=== PATIENT | female | born 1955 | race Caucasian/White ===

== ENCOUNTER → 2017-02-12 | Outpatient (CLI) | payer OTHER | LOC: BMCIMAGING 12:45 | PROVIDERS: ATTEND Internal Medicine | DX: Z12.31 Encounter for screening mammogram for malignant neoplasm of breast (principal); R92.8 Other abnormal and inconclusive findings on diagnostic imaging of breast | CPT/HCPCS: G0202 ==

== ENCOUNTER → 2017-02-22 | Outpatient (CLI) | payer OTHER | LOC: BMCIMAGING 10:06 | PROVIDERS: ATTEND Internal Medicine | DX: R92.8 Other abnormal and inconclusive findings on diagnostic imaging of breast (principal) | CPT/HCPCS: G0206 ==

== ENCOUNTER → 2018-03-10 | Outpatient (CLI) | payer OTHER | LOC: FIMAGING 09:24 | PROVIDERS: ATTEND Internal Medicine | DX: Z12.31 Encounter for screening mammogram for malignant neoplasm of breast (principal) ==

== ENCOUNTER 2018-06-23 05:25 | Inpatient (IN) | payer OTHER ==
[2018-06-23] MEDS ORDERED: ceFAZolin 2 GM/DEXTROSE 100 ML IV ONE (05:49)
[2018-06-23] MEDS ORDERED: ACETAMINOPHEN 500 MG TAB PO ONE (05:49)
[2018-06-23] MEDS ORDERED: GABAPENTIN 300 MG CAP PO ONE (05:49)
[2018-06-23] MEDS ORDERED: LR 1,000 ML IV ONE (05:53)
--- NOTE | 2018-06-23 06:31 | PDHPUP ---
History & Physical Update H&P update statement: This history and physical update is based on an assessment of the patient which was completed after admission or registration (within 24 hours), but prior to the surgery/procedure. H&P update: H&P reviewed & patient examined, no change in patient's condition since H&P completed
[2018-06-23] MEDS ORDERED: SUMAtriptan 50 MG TAB PO PRN (06:38)
[2018-06-23] MEDS ORDERED: CARBOXYMETHYLCELLULOSE 1% 0.4 ML DROPERETTE EACHEYE PRN (06:38)
[2018-06-23] MEDS ORDERED: SODIUM CL NASAL 45 ML BTL NS PRN (06:38)
[2018-06-23] MEDS ORDERED: BUPIVACAINE/EPI 0.25% 30 ML SDV ONE (06:41)
[2018-06-23] MEDS ORDERED: BACITRACIN 50,000 UNITS/10 ML SYR IRR ONE (06:42)
[2018-06-23] MEDS ORDERED: THROMBIN (BOVINE) 5,000 UNIT VIAL TP ONE (06:42)
[2018-06-23] MEDS ORDERED: CHLORHEXIDINE GLUC HIBICLENS 118 ML BTL TP ONE (06:42)
[2018-06-23] MEDS ORDERED: MIDAZOLAM 2 MG/2 ML VIAL ONE (07:05)
[2018-06-23] MEDS ORDERED: fentaNYL 100 MCG/2 ML INJ ONE ×2 (07:05→11:10)
[2018-06-23] MEDS ORDERED: PROPOFOL 200 MG/20 ML VIAL ONE (07:06)
[2018-06-23] MEDS ORDERED: PROPOFOL/EMULSION 500 MG/50 ML BOTTLE IV ONE ×2 (07:06→09:30)
[2018-06-23] MEDS ORDERED: POLYETHYLENE GLYCOL 3350 17 GM PKT PO PRN (07:24)
[2018-06-23] MEDS ORDERED: morphINE PCA 30 MG/30 ML PCA IV PRN (07:24)
[2018-06-23] MEDS ORDERED: HYDROCODONE/APAP 5/325 TAB PO PRN (07:24)
[2018-06-23] MEDS ORDERED: LACTULOSE 20 GM/30 ML UDCUP PO PRN (07:24)
[2018-06-23] MEDS ORDERED: BISACODYL 10 MG SUPP PR PRN (07:24)
[2018-06-23] MEDS ORDERED: HYDROmorphONE/DILAUDID 1 MG/ML INJ IVP PRN (07:24)
[2018-06-23] MEDS ORDERED: oxyCODONE IR 5 MG TAB PO PRN (07:24)
[2018-06-23] MEDS ORDERED: METHOCARBAMOL 750 MG TAB PO PRN (07:24)
[2018-06-23] MEDS ORDERED: ONDANSETRON 4 MG/2 ML VIAL IVP PRN ×2 (07:24→10:51)
[2018-06-23] MEDS ORDERED: diphenhydrAMINE 25 MG CAP PO PRN (07:24)
[2018-06-23] MEDS ORDERED: MAGNESIUM HYDROXIDE 30 ML UDCUP PO PRN (07:24)
[2018-06-23] MEDS ORDERED: NALOXONE HCL 0.4 MG/ML INJ IVP PRN ×2 (07:24→10:51)
[2018-06-23] MEDS ORDERED: ONDANSETRON DISINTEGRATING 4 MG TAB PO PRN (07:24)
[2018-06-23] MEDS ORDERED: NS 1,000 ML IV SCH (07:30)
[2018-06-23] MEDS ORDERED: ROCURONIUM 50 MG/5 ML VIAL ONE (07:31)
[2018-06-23] MEDS ORDERED: ONDANSETRON 4 MG/2 ML VIAL ONE (07:31)
[2018-06-23] MEDS ORDERED: METOCLOPRAMIDE 10 MG/2 ML VIAL ONE (07:31)
--- NOTE | 2018-06-23 07:37 | PDANEPAE ---
ANE Past Medical History - Cardiovascular History Hx Hypertension: Yes Hx Arrhythmias: No Hx Chest Pain: No Hx Coronary Artery / Peripheral Vascular Disease: No Hx CHF / Valvular Disease: No Hx Palpitations: No - Pulmonary History Hx COPD: No Hx Asthma/Reactive Airway Disease: No Hx Recent Upper Respiratory Infection: No Hx Oxygen in Use at Home: No Hx Sleep Apnea: No Sleep Apnea Screening Result - Last Documented: Negative - Neurologic History Hx Cerebrovascular Accident: No Hx Seizures: No Hx Dementia: No Neurologic History Comment: migraine. 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 narrowed sinuses - Chronic Pain History Chronic Pain: Yes (low back) - Surgical History Prior Surgeries: rhinoplasty x 3. tonsillectomy. laparotomy and spleenectomy. full hysterectomy. rotator cuff repair. lumbar fusion, L3-4-5, 2013 ANE Review of Systems Review of Systems: - Exercise capacity METS (RN): 5 METS ANE Patient History - Allergies Allergies/Adverse Reactions: Sulfa (Sulfonamide Antibiotics) Allergy (Verified 06/10/18 14:37) Vomiting - Home Medications Home Medications: Carboxymethylcellulose 1% [Refresh Celluvisc (*)] 1 drop EACHEYE DAILY PRN 06/10 [Last Taken 06/09/18] Estradiol [Estrace Vaginal (*)] 1 vasyl VG Q3D@21 06/10/18 [Last Taken 05/24/18] Estradiol [Estradiol 1 MG (*)] 0.5 mg PO HS 06/10/18 [Last Taken Unknown] Furosemide [Lasix 20 MG (*)] 10 mg PO HS 06/10/18 [Last Taken 06/20/18] Herbals/Supplements -Info Only 1 ea PO DAILY 06/10/18 [Last Taken 06/15/18] Nabumetone [Relafen 500 mg (*)] 500 mg PO BID PRN 06/10/18 [Last Taken 06/15/18] Promethazine HCl [Phenergan 12.5mg tab] 12.5 mg PO DAILY PRN 06/10/18 [Last Taken 06/09/18] SUMAtriptan [Imitrex 50 MG (*)] 100 mg PO Q2H PRN 06/10/18 [Last Taken 06/09/18] Sodium Cl Nasal [Massanutten Lucinda (*)] 1 spray NS DAILY PRN 06/10/18 [Last Taken 11/03] Topiramate [Topamax 100MG (*)] 100 mg PO HS 06/10/18 [Last Taken 06/22/18] guaiFENesin [Guaifenesin] 200 mg PO Q2D@21 06/10/18 [Last Taken 06/18/18] - NPO status NPO Since - Liquids (Date): 06/22/18 NPO Since - Liquids (Time): 03:30 NPO Since - Solids (Date): 06/22/18 NPO Since - Solids (Time): 18:00 - Smoking Hx Smoking Status: Never smoked - Family Anes Hx Family Hx Anesthesia Complications: none ANE Labs/Vital Signs - Vital Signs Blood Pressure: 147/89 Heart Rate: 64 Respiratory Rate: 16 O2 Sat (%): 95 Height: 170.18 cm Weight: 73.482 kg ANE Physical Exam - Airway Mallampati Score: Class 2 - ASA Status ASA Status: II ANE Anesthesia Plan Anesthesia Plan: general endotracheal anesthesia Urgent/Emergent Case: Nova marie completed preop but documented later for safe timely pt care
[2018-06-23] MEDS ORDERED: PHENYLEPHRINE HCL 100 MCG/ML SYR ONE (08:24)
--- NOTE | 2018-06-23 10:23 | PDMN ---
Medical Necessity Medical necessity: Pt meets inpt criteria per MD order and [facility] [place] S-820, Lumbar Fusion, Medicare IP only list. 62 y/o admitted for L2/3 TLIF and post-op care.
[2018-06-23] MEDS ORDERED: PROMETHAZINE HCL 25 MG/ML INJ IVP PRN (10:51)
[2018-06-23] MEDS ORDERED: HYDROmorphONE/DILAUDID 2 MG/ML INJ IVP PRN (10:51)
[2018-06-23] MEDS ORDERED: fentaNYL 100 MCG/2 ML INJ IVP PRN (10:51)
[2018-06-23] MEDS ORDERED: LR 500 ML IV PRN (10:51)
[2018-06-23] MEDS ORDERED: DEXAMETHASONE 4 MG/ML VIAL IVP PRN (10:51)
--- NOTE | 2018-06-23 10:53 | POSTANESTH ---
Post Anesthetic Evaluation Cardiovascular Status: Normal, Stable Respiratory Status: Normal, Stable Level of Consciousness/Mental Status: Can Participate in Eval Pain Control: Adequate, Prn Tx Ordered Nausea/Vomiting Control: Adequate, Prn Tx Ordered Complications Possibly Related to Anesthesia: None Noted
--- NOTE | 2018-06-23 10:58 | POSTOPPROG ---
Post Op Note Date of Operation: 06/23/18 Surgeon: El Zhang Diving Board Assembler: TERRY Munoz Anesthesiologist: MD Berna Anesthesia: GET(General Endotracheal), Local (Specify) Pre-op Diagnosis: lumbar stenosis L2/3 Post-op Diagnosis: lumbar stenosis L2/3 Indication: lumbar radiculopathy Procedure: L2/3 TLIF with tie in fusion to prior PSF hardware Findings: see op report Inf/Abcess present in the surg proc area at time of surgery?: No Depth: Deep Incisional (Fascial) EBL: 100-500 Total fluids administered: see anesthesia record Complications: none Drains: Brad Mcneill
--- NOTE | 2018-06-23 11:02 | SOAPPROG ---
SOAP Progress Note Assessment/Plan: Post Op Visit: S: Awake and alert. Pt with expected lower back pain O: AFVSS/PERRLA/EOMI no droop CN 2-12 grossly intact +lt touch 5/5 BUE/BLE = CDI MIKO in place A/P: 62 yo female that is s/p L2/3 TLIF with tie in fusion to PSF -orders in place -brace when out of bed -no bending or twisting -post op xrays pending -call with any questions or concerns Objective: Vital Signs Temp Pulse Resp BP Pulse Ox 36.6 C 64 16 147/89 H 95 06/23/18 06:15 06/23/18 07:37 06/23/18 07:37 06/23/18 07:37 06/23/18 07:37 ICD10 Worksheet Patient Problems: Problems Problem Status Onset Arthrodesis status Acute Lumbago Acute Lumbar radicular pain Acute Lumbar stenosis Acute - ICD10 Problem Qualifiers (1) Lumbar radicular pain (2) Lumbago (3) Lumbar stenosis (4) Arthrodesis status
[2018-06-23] MEDS ORDERED: HYDROmorphONE/DILAUDID 2 MG/ML INJ ONE (11:11)
[2018-06-23] MEDS ORDERED: PROMETHAZINE HCL 25 MG TAB PO PRN (11:45)
[2018-06-23] MEDS: SENNOSIDES/DOCUSATE SODIUM TAB PO SCH ×2 (12:17→21:58)
[2018-06-23] MEDS: FAMOTIDINE 20 MG TAB PO SCH ×2 (12:17→21:58)
--- NOTE | 2018-06-23 12:26 | GOP ---
DATE OF OPERATION: 06/23/2018 SURGEON: Nate Zhang MD NEUROSURGEON: Nate Zhang MD PAYROLL PROFESSIONAL: Kamran Munoz PA-C PREOPERATIVE DIAGNOSIS: Adjacent segment disease and severe stenosis with bilateral lumbosacral radi culopathy at L2-3, above a prior L3-4 and L4-5 fusion. POSTOPERATIVE DIAGNOSIS: Adjacent segment disease and severe stenosis with bilateral lumbosacral rad iculopathy at L2-3, above a prior L3-4 and L4-5 fusion. PROCEDURE PERFORMED: Removal of posterior nonsegmental hardware at the L3 level (84328); posterior n onsegmental instrumentation across a single interspace at L2-3 (28296), posterior-lateral interverteb ral arthrodesis L2-3 (46202), spinal stereotactic, placement of biomechanical intervertebral device L 2-3, same incision bone graft harvest microscope. FINDINGS: SPECIMENS: None. ESTIMATED BLOOD LOSS: 150 cc. INDICATIONS: The patient is a middle-age woman who underwent a successful 2-level fusion by Dr. Bud Clark previously with good result. She developed increasingly severe low back pain and bilater al radiating pain that failed conservative management and her MRI demonstrates severe stenosis above a prior fusion at the L2-3 level. There appeared to be solid arthrodesis, bony union at the prior gleason rgical site, and I suggested an adjacent segment decompression and fusion. The risk of screw and jacey dware malposition, malfunction, fracture, continued symptoms, spinal fluid leak and nerve injury; the y understood that surgery does not always work and that she may require additional surgery above this and she did want to proceed despite these risks. DESCRIPTION OF PROCEDURE: The patient was taken to the operating, placed in supine position. Genera l anesthesia was begun. She was flipped prone onto the Brad table. Care was taken to pad all poi nts of contact. Her back was sterilely prepped and draped in usual fashion. The O-arm was introduce d and sterilely filled. We opened her prior incision in the midline, extended rostrally about 3.5 cm . The subcutaneous tissue was dissected using plasma blade down through the fascia and a subperioste al dissection was made down the inferior lamina of L1. The lamina of L2-3 was exposed. The prior gregory rdware at L3-4 was exposed. We did not expose the hardware at L5. We removed the cap screws at L3 a nd L4 and then cut the juan inside the tulip at L3 to leave enough juan to tie into. We cut the juan wi th a carbide bit and removed both of the L3 screws without difficulty. Then we smoothed off the end of the juan to allow the connector to fit flush on the juan itself. We put the connectors on the juan j ust to ensure that they did fit. We did have to remove some of the posterolateral bone to allow the connectors to fit. We then attached the Stealth reference frame to the spinous process and performed an O-arm spin, and using frameless Stealth stereotaxy, placed pedicle screws bilaterally at L2. We then placed inline connectors to the superior juan at L3 and then placed a 40 mm juan down into the con nector. We distracted between L3 and L4 and then loosened the connecting set screws to allow the juan s to collapse in the connector and then these were final tightened. We replaced the cap screws at L4 bilaterally with the NuVasive cap screws that had been removed. We then removed all soft tissue fro m bone at L2-3, and harvested the L2 spinous process for autologous grafting purposes. Under the justino roscope, we drilled bilateral L2-3 decompression laminectomy and harvested this bone for autologous g rafting purposes. We removed the right L2-3 facet joint. We did perform bilateral decompressions at L2-3. We swept the right L3 nerve root medially and via this pathway we coagulated the epidural vei ns above the L2-3 disc, incised the disc, removed the disk and the cartilaginous endplates. We rough ened the subchondral bone to create arthrodesis at that level and chose a 7 x 28 mm expandable device . We took bone autograft and BMP and placed it into the disk space followed by the device under fluo roscopic guidance and it was then expanded under fluoroscopic guidance. A nice fit was obtained. We then decorticated the posterolateral bone bilaterally, placed bone posterolaterally bilaterally foll owed by BMP and a subfascial drain was placed. We closed the incision in multiple layers using Vicry l sutures. There was no complication. We had performed the TLIF from a right-sided approach at this level because of the right-sided symptoms. There were no complications. The patient tolerated the procedure well. COMPLICATIONS: None. HARDWARE REMOVED: NuVasive screws at L3. INSTRUMENTATION USE: Solera 5.5 mm system with a tie-in connector, in-line connector, at the L3 leve l, with 6.5 x 50 mm screws at L2 and a 7 x 28 mm Elevate cage. We used an extra small BMP 2.0 mg. /[id number]/MODL
[2018-06-23] MEDS: ACETAMINOPHEN 500 MG TAB PO SCH ×2 (15:55→21:57)
[2018-06-23] MEDS: GABAPENTIN 300 MG CAP PO SCH ×2 (15:55→21:58)
[2018-06-23] MEDS: ceFAZolin 2 GM/DEXTROSE 100 ML IV SCH (15:56)
[2018-06-23] MEDS ORDERED: ESTRADIOL 1 MG TAB PO SCH (21:00)
[2018-06-23] MEDS ORDERED: TOPIRAMATE 100 MG TAB PO SCH (21:00)
[2018-06-23] MEDS ORDERED: guaiFENesin 200 MG TAB PO SCH (21:00)
[2018-06-23] MEDS ORDERED: FUROSEMIDE 20 MG TAB PO SCH (21:00)
[2018-06-24] MEDS: ceFAZolin 2 GM/DEXTROSE 100 ML IV SCH (00:28)
[2018-06-24 04:53] LABS: PLATELET COUNT 196 10^3/uL (150-400)
[2018-06-24] MEDS: GABAPENTIN 300 MG CAP PO SCH ×2 (06:19→14:04)
[2018-06-24] MEDS: ACETAMINOPHEN 500 MG TAB PO SCH ×2 (06:19→14:06)
--- NOTE | 2018-06-24 07:39 | NEUSURGPN ---
Date of Surgery: 06/23/18 Post Op Day: 1 Assessment/Plan: 62 yo female s/p TLIF at L2/3 with tie in to prior fusion - neuro stable - pain control - brace on when out of bed - PT/OT - remove MIKO this afternoon - postop L-spine x-rays pending - SCDs/TEDs, Lovenox scheduled to start on 06/[address] Zhang Subjective: Doing well this morning. No LE symptoms. Admits to localized back pain. Objective: Awake. Alert. PERRL. EOMI Facial expression symmetrical Muscle strength full at 5/5 Sensation intact - Physician Discussed Patient with : [facility] Physical Exam - Vitals, I&O, Labs I and O 06/23/18 06/24/18 06/25/18 05:59 05:59 05:59 Intake Total 3700 Output Total 2245 140 Balance 1455 -140 Weight 75.387 kg Intake: Oral (ml) 2060 IV Intake (ml) 1640 Output: Urine (ml) 1800 100 Bedside Commode 600 Toilet 1200 100 Estimated Blood Loss (ml) 150 Emesis (ml) 0 MIKO Drain Output (ml) 295 40 Right Back Brad Mcneill 295 40 Other: Intake Quantity Yes Sufficient Vital Signs Temp Pulse Resp BP Pulse Ox 37.0 C 67 16 118/66 95 06/24/18 07:30 06/24/18 07:30 06/24/18 07:30 06/24/18 07:30 06/24/18 07:30 Laboratory Results 06/24/18 04:31 06/24/18 04:31 ICD10 Worksheet Patient Problems: Problems Problem Status Onset Arthrodesis status Acute Lumbago Acute Lumbar radicular pain Acute Lumbar stenosis Acute
[2018-06-24] MEDS: FAMOTIDINE 20 MG TAB PO SCH (09:41)
[2018-06-24] MEDS: SENNOSIDES/DOCUSATE SODIUM TAB PO SCH (09:41)
[2018-06-24 11:55] VITALS: BP 118/75
--- NOTE | 2018-06-24 14:03 | ASMTCMCOM ---
CM Note CM Note Notes: Pt had planned spinal surgery, resides with spouse. OT/PT rec home with family assist. No CM d/c needs identified. CM available for changes/needs. Date Signed: 06/24/2018 02:03 PM Electronically Signed By:HANNAH Thompson
[2018-06-26] MEDS ORDERED: ENOXAPARIN 40 MG/0.4 ML SYR SC SCH (09:00)
[2018-06-26] MEDS ORDERED: ESTRADIOL 42.5 GM CRTUBE VG SCH (21:00)
== END 2018-06-24 16:39 | disposition home or self-care (01) | DRG 455 ==
LOC: F3N 05:25
PROVIDERS: ADMIT Neurological Surgery; ATTEND Neurological Surgery
PROC: 0SG00AJ Fusion of Lumbar Vertebral Joint with Interbody Fusion Device, Posterior Approach, Anterior Column, Open Approach (ICD-10-PCS; principal; 2018-06-23 07:15)
PROC: 0SG0071 Fusion of Lumbar Vertebral Joint with Autologous Tissue Substitute, Posterior Approach, Posterior Column, Open Approach (ICD-10-PCS; principal; 2018-06-23 07:15)
PROC: 00NY0ZZ Release Lumbar Spinal Cord, Open Approach (ICD-10-PCS; principal; 2018-06-23 07:15)
PROC: 4A1004G Monitoring of Central Nervous Electrical Activity, Intraoperative, Open Approach (ICD-10-PCS; principal; 2018-06-23 07:15)
PROC: 0SP00AZ Removal of Interbody Fusion Device from Lumbar Vertebral Joint, Open Approach (ICD-10-PCS; principal; 2018-06-23 07:15)
PROC: 01NB0ZZ Release Lumbar Nerve, Open Approach (ICD-10-PCS; principal; 2018-06-23 07:15)
DX: M48.07 Spinal stenosis, lumbosacral region (principal); M51.16 Intervertebral disc disorders with radiculopathy, lumbar region; I10 Essential (primary) hypertension; G43.909 Migraine, unspecified, not intractable, without status migrainosus; K21.9 Gastro-esophageal reflux disease without esophagitis; Z98.1 Arthrodesis status; Z85.72 Personal history of non-Hodgkin lymphomas
CPT/HCPCS: 97161-GP; 97165-GO; 97530-GP; C1713; J0690; J1170; J2250; J2270; J2370; J2405; J2704; J2765; J3010

== ENCOUNTER → 2018-08-23 | Outpatient (CLI) | payer OTHER | LOC: BMCIMAGING 14:57 | PROVIDERS: ATTEND Internal Medicine | DX: R06.02 Shortness of breath (principal) ==